=== PATIENT | female | born 1955 | race Caucasian/White ===

== ENCOUNTER 2018-02-11 18:38 | Emergency (ER) | payer OTHER ==
[~2018-02-11] VITALS: Ht 160 cm; Wt 67.1 kg
[2018-02-11] MEDS ORDERED: VERAPAMIL ER120 MG (18:51)
[2018-02-11] MEDS ORDERED: CYCLOBENZAPRINE10 MG PO (22:17)
[2018-02-11] MEDS ORDERED: KETO10TA2 PO (22:17)
== END 2018-02-11 22:25 | disposition home or self-care (01) ==
LOC: ER 18:38
DX: S00.83XA Contusion of other part of head, initial encounter (principal); S43.491A Other sprain of right shoulder joint, initial encounter; S53.491A Other sprain of right elbow, initial encounter; W10.8XXA Fall (on) (from) other stairs and steps, initial encounter; Y93.89 Activity, other specified; Y92.89 Other specified places as the place of occurrence of the external cause; Y99.8 Other external cause status